=== PATIENT | female | born 1980 | race American Indian/Alaskan Native ===

== ENCOUNTER 2017-01-09 21:34 | Emergency (ER) | payer SELFPAY ==
[2017-01-10 02:54] VITALS: BP 119/73
[2017-01-10] MEDS ORDERED: TORADOL IM ONE (03:26)
--- NOTE | 2017-01-10 04:14 | XRay Report ---
FINAL REPORT EXAM: XR KNEE BILAT 3V HISTORY: pain, swelling both knees TECHNIQUE: Three views of each knee were submitted. FINDINGS: In the right knee all 3 compartments are well maintained. There is patellar spurring superiorly. Joint fluid is not seen. In the left knee all 3 compartments are well maintained. There is patellar spurring superiorly. Joint fluid is not seen. IMPRESSION: Patellar spurring bilaterally. Otherwise unremarkable studies.
--- NOTE | 2017-01-10 04:57 | Emergency Department Report ---
ED Extremity Problem HPI - General Chief complaint: Extremity Injury, Lower Stated complaint: BILATERAL KNEE PAIN Time Seen by Provider: 01/10/17 02:58 Source: patient Mode of arrival: Ambulatory Limitations: No Limitations - History of Present Illness Initial comments: That she didn't feel female with no significant past medical history, presents to ER with complaints of bilateral knee pain 3 days. No antecedent history of trauma. Patient noticed swelling of both knees, and she is experiencing excruciating pain. She is having some difficulty ambulating. Patient denies history of fever, no nausea, no vomiting, no diarrhea. No family history of arthritis. MD Complaint: extremity pain (bilateral knee pain), extremity swelling ( swelling of both knees) -: Gradual, days(s) (3) Location: left, right, knee History of Same: No -: No myalgia, Yes arthralgia, No fever, No associated dyspnea, No associated chest pain Radiation: none Severity scale (0 -10): 4 Quality: aching Consistency: constant Improves with: nothing Worsens with: weight bearing, exertion, palpation Associated Symptoms: denies other symptoms. denies: chest pain, shortness of breath, fever, myalgias, arthralgias, rash - Related Data Previous Rx's Medication Instructions Recorded Last Taken Type Ibuprofen [Motrin 800 MG tab] 800 mg PO Q8HR PRN #30 tablet 01/10/17 Unknown Rx methylPREDNISolone [Medrol] 4 mg PO DAILY #1 packet 01/10/17 Unknown Rx Allergies Allergy/AdvReac Type Severity Reaction Status Date / Time doxycycline AdvReac Unknown Unverified 09/28/15 10:50 ED Review of Systems ROS: Stated complaint: BILATERAL KNEE PAIN Other details as noted in HPI Comment: All other systems reviewed and negative Constitutional: weakness. denies: chills, diaphoresis, fever, malaise Eyes: denies: eye pain, eye discharge, vision change ENT: denies: ear pain, throat pain, dental pain, hearing loss, epistaxis Respiratory: denies: cough, orthopnea, shortness of breath, SOB with exertion, SOB at rest, stridor Cardiovascular: denies: as per HPI, chest pain, palpitations, dyspnea on exertion, edema, syncope, paroxysmal nocturnal dyspnea, other Endocrine: no symptoms reported Gastrointestinal: denies: abdominal pain, nausea, vomiting, diarrhea, constipation, hematemesis Genitourinary: denies: dysuria, frequency, hematuria, discharge Musculoskeletal: joint swelling (both knees), arthralgia (both knees) Skin: denies: lesions, change in color, change in hair/nails, pruritus Neurological: abnormal gait. denies: headache, weakness, numbness, paresthesias , vertigo ED Past Medical Hx - Past Medical History Previous Medical History?: No - Surgical History Past Surgical History?: No - Social History Smoking Status: Never Smoker - Medications Home Medications: Home Medications Medication Instructions Recorded Confirmed Last Taken Type Ibuprofen [Motrin 800 MG tab] 800 mg PO Q8HR PRN #30 tablet 01/10/17 Unknown Rx methylPREDNISolone [Medrol] 4 mg PO DAILY #1 packet 01/10/17 Unknown Rx ED Physical Exam - General Limitations: No Limitations General appearance: alert, in distress (mild to moderate distress) - Head Head exam: Present: atraumatic, normocephalic. Absent: normal inspection - Eye Eye exam: Present: normal appearance, PERRL, EOMI. Absent: scleral icterus, conjunctival injection, nystagmus - ENT ENT exam: Present: normal exam, normal orophraynx, mucous membranes moist. Absent: TM's normal bilaterally, normal external ear exam - Neck Neck exam: Present: normal inspection, full ROM. Absent: tenderness, meningismus, lymphadenopathy, thyromegaly - Respiratory Respiratory exam: Present: normal lung sounds bilaterally. Absent: respiratory distress, wheezes, rales, rhonchi, stridor, chest wall tenderness, accessory muscle use, decreased breath sounds, prolonged expiratory - Cardiovascular Cardiovascular Exam: Present: regular rate, normal rhythm, normal heart sounds. Absent: tachycardia, irregular rhythm, systolic murmur, diastolic murmur - GI/Abdominal GI/Abdominal exam: Present: soft, normal bowel sounds. Absent: distended, guarding, rebound, rigid, hyperactive bowel sounds, hypoactive bowel sounds, organomegaly, mass, bruit, pulsatile mass, hernia - Rectal Rectal exam: Present: deferred - Expanded Lower Extremity Exam Left Hip exam: Present: normal inspection, full ROM. Absent: tenderness, swelling, abrasion, laceration, ecchymosis, deformity Upper Leg exam: Present: normal inspection, full ROM. Absent: tenderness, swelling, abrasion, laceration, ecchymosis, deformity Knee exam: Present: swelling, effusion. Absent: normal inspection, full ROM, abrasion, laceration, ecchymosis, deformity, dislocation, erythema, pain w/ pronation/supination, posterior draw sign, pain/laxity with valgus, pain/laxity with varus, full knee extension Lower Leg exam: Present: normal inspection, tenderness, swelling. Absent: full ROM, abrasion, laceration, ecchymosis, deformity, crepidus Ankle exam: Present: normal inspection, full ROM, abrasion. Absent: tenderness Foot/Toe exam: Present: normal inspection, full ROM. Absent: tenderness, swelling, abrasion, laceration, ecchymosis, deformity Neuro vascular tendon exam: Present: no vascular compromise. Absent: pulse deficit, motor deficit, sensory deficit, tendon deficit, extremity cold to touch , pallor, abnormal 2-point discrimination, decreased fine/light touch, foot drop Gait: Negative: observed and normal - Back Exam Back exam: Present: normal inspection, full ROM. Absent: tenderness, CVA tenderness (R), CVA tenderness (L), muscle spasm, paraspinal tenderness - Neurological Exam Neurological exam: Present: alert, oriented X3, CN II-XII intact, abnormal gait , motor sensory deficit ED Course Vital Signs 01/09/17 01/09/17 01/10/17 21:37 21:47 02:54 Temperature 98.2 F 98.2 F 98 F Pulse Rate 72 57 L Respiratory 18 18 18 Rate Blood Pressure 107/69 107/69 Blood Pressure 119/73 [Right] O2 Sat by Pulse 100 100 Oximetry Critical Care Time: No Critical care attestation.: If time is entered above; I have spent that time in minutes in the direct care of this critically ill patient, excluding procedure time. ED Disposition Clinical Impression: Osteoarthritis of both knees Disposition: DC-01 TO HOME OR SELFCARE Is pt being admited?: No Does the pt Need Aspirin: No Condition: Stable Instructions: Osteoarthritis (ED) Additional Instructions: Use crutches to support your gait. Non-weightbearing on both the use until pain free Prescriptions: Ibuprofen [Motrin 800 MG tab] 800 mg PO Q8HR PRN #30 tablet PRN Reason: Pain methylPREDNISolone [Medrol] 4 mg PO DAILY #1 packet Referrals: PRIMARY CAREMD [Primary Care Provider] - 3-5 Days HOMA KOTHARI MD [Staff Physician] - 3-5 Days (Physical office to set up an appointment) Time of Disposition: 05:08
== END 2017-01-10 05:15 | disposition home or self-care (01) ==
LOC: ED 21:34
DX: M17.0 Bilateral primary osteoarthritis of knee (principal); Z88.1 Allergy status to other antibiotic agents
CPT/HCPCS: 73562; 96372; 99283; J1885; J2930